=== PATIENT | male | born 1980 | race Caucasian/White ===

== ENCOUNTER 2021-03-28 08:56 | Day surgery (SDC) | payer OTHER ==
[~2021-03-28] VITALS: Ht 167.6 cm; Wt 83.0 kg
[2021-03-28 09:24] VITALS: BP 116/76
== END 2021-03-28 14:35 | disposition home or self-care (01) ==
LOC: OUT 08:56
PROVIDERS: ATTEND Surgery
DX: K80.10 Calculus of gallbladder with chronic cholecystitis without obstruction (principal); Z20.822 Contact with and (suspected) exposure to COVID-19
CPT/HCPCS: 36415; 47562; 80053; 85025; 87635; 88304; J0171; J1885; J2060; J2175; J3010; J7120